=== PATIENT | male | born 1975 | race African-American/Black ===

== ENCOUNTER 2023-11-20 12:46 | Inpatient (IN) | payer OTHER ==
[2023-11-20 13:42] VITALS: BMI 25.2
[2023-11-20] MEDS ORDERED: ACETAMINOPHEN 325 MG TABLET (FP) PO PRN (15:28)
[2023-11-20] MEDS ORDERED: MAG HYDROX/AL HYDROX/SIMETH 30 ML UNIT-DOSE CUP PO PRN (15:28)
[2023-11-20] MEDS ORDERED: BENZOCAINE/MENTHOL (CHLORASEPTIC ) LOZENGE MM PRN (15:28)
[2023-11-20] MEDS ORDERED: IBUPROFEN 600 MG TABLET (FP) PO PRN (15:28)
[2023-11-20] MEDS ORDERED: chlordiazePOXIDE HCL 25 MG CAPSULE PO PRN (15:28)
[2023-11-20] MEDS ORDERED: IBUPROFEN 400 MG TABLET (FP) PO PRN (15:28)
[2023-11-20] MEDS ORDERED: ONDANSETRON *ODT* 4 MG TABLET SL PRN (15:28)
[2023-11-20] MEDS ORDERED: NALOXONE HCL (KLOXXADO) 8 MG SPRAY NS PRN (15:28)
[2023-11-20] MEDS ORDERED: DICYCLOMINE HCL 10 MG CAPSULE PO PRN (15:28)
[2023-11-20] MEDS ORDERED: BISMUTH SUBSALICYLATE 524 MG/30 ML PO PRN (15:28)
[2023-11-20] MEDS ORDERED: NALOXONE HCL 0.4 MG/ML VIAL IM PRN (15:28)
[2023-11-20] MEDS ORDERED: LOPERAMIDE HCL 2 MG CAPSULE PO PRN (15:28)
[2023-11-20] MEDS ORDERED: BENZONATATE 200 MG CAPSULE PO PRN (15:28)
[2023-11-20] MEDS ORDERED: guaiFENesin 600 MG TABLET.ER (FP) PO PRN (15:28)
[2023-11-20] MEDS: PRENATAL VITAMINS W/ FOLIC ACID TABLET (FP) PO SCH (16:23)
[2023-11-20] MEDS: chlordiazePOXIDE HCL 25 MG CAPSULE PO SCH (16:27)
[2023-11-20] MEDS: NICOTINE POLACRILEX 4 MG GUM BUC PRN (17:57)
[2023-11-20] MEDS: THIAMINE HCL 100 MG TABLET (FP) PO SCH (22:08)
[2023-11-20] MEDS: MELATONIN 5 MG TABLETS PO SCH (22:09)
[2023-11-21] MEDS: NICOTINE 14 MG/24 HOURS TOPICAL PATCH TD SCH (10:11)
[2023-11-21 12:32] LABS: HEMATOCRIT 39.1 % (35.4-49); HEMOGLOBIN 13.5 GM/dL (11.7-16.9); MCH 30.1 pg (25.7-33.7); MCHC 34.7 g/dl (32.0-35.9); MEAN CELL VOLUME 86.9 fl (80-96); MEAN PLT VOLUME 8.6 fl (7.5-11.1); PLATELET COUNT 184 10^3/uL (134-434); RDW 14.5 % (11.9-15.9); WHITE BLOOD COUNT 3.8 K/mm3 (4.0-10.0)
[2023-11-21 12:38] LABS: CHLORIDE 108 mmol/L (98-107); POTASSIUM 3.9 mmol/L (3.5-5.1); SODIUM 143 mmol/L (136-145)
[2023-11-21 12:46] LABS: ALBUMIN 3.2 g/dl (3.4-5.0); ANION GAP 7 mmol/L (4-13); CO2 28 mmol/L (21-32); GLUCOSE,RANDOM 98 mg/dL (74-106)
[2023-11-21 12:48] LABS: CREATININE 0.9 mg/dL (0.55-1.3)
[2023-11-21 12:49] LABS: SGOT/AST 13 U/L (15-37); SGPT/ALT 22 U/L (13-61)
[2023-11-21 12:50] LABS: BILIRUBIN,TOTAL 0.4 mg/dL (0.2-1); TOT PROT 6.9 g/dl (6.4-8.2)
[2023-11-21 12:51] LABS: ALK PHOS 51 U/L (45-117)
[2023-11-21] MEDS: LACTULOSE 20 GM/30 ML UDC (FOR ORAL USE ONLY) PO SCH (17:45)
[2023-11-21] MEDS: hydrOXYzine PAMOATE 25 MG CAPSULE (FP) PO PRN (22:16)
[2023-11-21] MEDS: METHOCARBAMOL 500 MG TABLET PO PRN (22:16)
[2023-11-22] MEDS: chlordiazePOXIDE HCL 25 MG CAPSULE PO SCH (05:20)
[2023-11-23] MEDS ORDERED: chlordiazePOXIDE HCL 10 MG CAPSULE PO PRN
[2023-11-23] MEDS: chlordiazePOXIDE HCL 10 MG CAPSULE PO SCH (05:47)
[2023-11-24] MEDS: chlordiazePOXIDE HCL 10 MG CAPSULE PO SCH (06:05)
[2023-11-24] MEDS: MAGNESIUM HYDROX 2400MG/30ML ORAL SUSPENSION 30 ML CUP PO PRN (10:29)
[2023-11-25] MEDS: chlordiazePOXIDE HCL 10 MG CAPSULE PO ONE (05:53)
[2023-11-25] MEDS: POLYETHYLENE GLYCOL (HEALTHYLAX) 3350 17 GM PACKET PO PRN (11:13)
[2023-11-25] MEDS: MINERAL OIL ENEMA 133 ML ENEMA RC ONE (13:03)
[2023-11-26 09:43] VITALS: BP 115/67; PULSE 71; RESP 18; TEMP 97.5
== END 2023-11-26 09:55 | disposition home or self-care (01) | DRG 775 ==
LOC: YASAS 12:46 → Y6N 16:38
PROVIDERS: ADMIT Allergy & Immunology; ATTEND Surgery
PROC: HZ2ZZZZ Detoxification Services for Substance Abuse Treatment (ICD-10-PCS; principal; 2023-11-19)
DX: F10.230 Alcohol dependence with withdrawal, uncomplicated (principal); F12.20 Cannabis dependence, uncomplicated; F17.210 Nicotine dependence, cigarettes, uncomplicated; F10.282 Alcohol dependence with alcohol-induced sleep disorder; R79.89 Other specified abnormal findings of blood chemistry; R73.03 Prediabetes
CPT/HCPCS: 36415; 80053; 80305; 80307; 82140; 85027; 86780; 87635; 87811; 93005; 93010